=== PATIENT | male | born 1945 | race Caucasian/White ===

== ENCOUNTER 2020-12-11 14:04 | Emergency (ER) | payer MEDICARE ==
[2020-12-11 14:19] VITALS: BP 147/77
[2020-12-11] MEDS ORDERED: TAMSULOSIN 0.4 MG CAPSULE PO STA (14:47)
--- NOTE | 2020-12-11 14:49 | ED Physician Documentation ---
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 No history of urinary retention but has not been able to urinate in several hours and now with supreme discomfort in the groin. No flank pain or fevers.) Review of Systems Constitutional: denies: Fever, Chills Throat: reports: Reviewed and negative Cardiac: reports: Reviewed and negative Respiratory: reports: Reviewed and negative PD PAST MEDICAL HISTORY - Present Medications Home Medications: Ambulatory Orders Medication Instructions Recorded Confirmed Tamsulosin [Flomax] 0.4 mg PO DAILY #30 cap 12/11/20 - Allergies Allergies/Adverse Reactions: Allergies Allergy/AdvReac Type Severity Reaction Status Date / Time No Known Drug Allergies Allergy Verified 12/11/20 14:16 PD ED PE NORMAL - Vitals Vital signs reviewed: Yes - General General: Alert and oriented X 3, No acute distress - Abdomen Abdomen: Non tender, Other (Suprapubic fullness and tenderness, bladder scan done on my evaluation with about 500 mL in the bladder) - Neuro Neuro: Alert and oriented X 3, Normal speech - Psych Psych: Normal mood, Normal affect Results - Vitals Vitals: Vital Signs - 24 hr 12/11/20 14:16 Temperature 36.5 C Heart Rate 79 Respiratory 18 Rate Blood Pressure 147/77 H O2 Saturation 98 Oxygen O2 Source Room air Procedures - General procedure General procedure: I personally placed a 16 Fijian Barraza in standard fashion using normal sterile procedure and 500 mL came out initially. Patient was relieved. PD MEDICAL DECISION MAKING - ED course ED course: Diagnosis: 1. Urinary retention 2. Prostatic hypertrophy Departure - Departure Disposition: 01 Home, Self Care Condition: Good Record reviewed to determine appropriate education?: Yes Instructions: ED Catheter Care Barraza Prescriptions: Tamsulosin [Flomax] 0.4 mg PO DAILY #30 cap Comments: Diagnosis today is urinary retention related to prostatic hypertrophy. Follow- up with your urologist on return home. Drink plenty of fluids and make sure to stand up slowly while on Flomax. Return or go to the urgent care in 3 days for voiding trial and Barraza removal. [facility] Address: [id number], [place] [address]
== END 2020-12-11 15:08 | disposition home or self-care (01) ==
LOC: ED 14:04
DX: N40.1 Benign prostatic hyperplasia with lower urinary tract symptoms (principal); R33.8 Other retention of urine
CPT/HCPCS: 51702; 51798; 99283; A9270